=== PATIENT | female | born 1955 | race Caucasian/White ===

== ENCOUNTER 2020-08-15 13:35 | Outpatient (CLI) | payer MEDICARE ==
[2020-08-15] MEDS ORDERED: LIDOCAINE 1%, 10ML ONE (13:47)
[2020-08-21] MEDS ORDERED: ALPR0.25 PO (12:21)
[2020-08-21] MEDS ORDERED: LISI5TAB7 PO (12:21)
[2020-08-21] MEDS ORDERED: PANT40TA6 PO (12:21)
[2020-08-21] MEDS ORDERED: ASPI81TA45 PO (12:21)
[2020-08-21] MEDS ORDERED: ATOR-2 PO (12:21)
== END 2020-08-15 23:59 | disposition home or self-care (01) ==
LOC: RAD 13:35
PROVIDERS: ATTEND Specialist
DX: R18.0 Malignant ascites (principal); C56.9 Malignant neoplasm of unspecified ovary; R10.9 Unspecified abdominal pain
CPT/HCPCS: 49083

== ENCOUNTER 2020-10-04 13:20 | Outpatient (CLI) | payer MEDICARE ==
[~2020-10-04 13:20] MED LIST: ALPR0.25 PO; ASPI81TA45 PO; ATOR-2 PO; IBUP-1222 PO; LISI5TAB7 PO; PANT40TA6 PO; TRAM50TA2 PO
[2020-10-04] MEDS ORDERED: OMNIPAQUE 350 MG/ML, 100ML BOTTLE ONE (15:25)
== END 2020-10-04 23:59 | disposition home or self-care (01) ==
LOC: CFH 13:20
PROVIDERS: ATTEND Specialist
DX: C78.6 Secondary malignant neoplasm of retroperitoneum and peritoneum (principal); C18.9 Malignant neoplasm of colon, unspecified; C56.9 Malignant neoplasm of unspecified ovary; C57.00 Malignant neoplasm of unspecified fallopian tube; C77.5 Secondary and unspecified malignant neoplasm of intrapelvic lymph nodes; K57.30 Diverticulosis of large intestine without perforation or abscess without bleeding; R10.2 Pelvic and perineal pain; R18.0 Malignant ascites; E04.2 Nontoxic multinodular goiter; K75.3 Granulomatous hepatitis, not elsewhere classified; M51.36 Other intervertebral disc degeneration, lumbar region
CPT/HCPCS: 71260; 74177; Q9967